=== PATIENT | male | born 1980 | race Caucasian/White ===

== ENCOUNTER 2018-12-08 06:29 | Day surgery (SDC) | payer OTHER ==
[~2018-12-08] VITALS: Ht 185.4 cm; Wt 102.3 kg
[~2018-12-08 06:29] MED LIST: ASPIRIN 32325 MG/TAB PO; FIBERCON PO; MULTI VITAMINS1 TAB PO
[2018-12-08 07:32] VITALS: BP 174/103; PULSE 78; TEMP 98.1
--- NOTE | 2018-12-08 07:56 | NUR ---
Blood pressure on recheck is 147/98. Patient states that his pressures are always when is nervous.
[2018-12-08 10:31] VITALS: TEMP 97.5
[2018-12-08 11:10] VITALS: BP 136/84; PULSE 90
--- NOTE | 2018-12-08 11:10 | NUR ---
Patient returns to room 8 per cart from PACU and is alert and oriented x3. Room air sats 95% and incisions x3 across mid abdomen intact and covered with sandoval set dressing. IV fluids infusing. Spouse and son in room. Siderails up x2 and call light in reach. Denies nausea and taking water. Rates pain at 1/10.
[2018-12-08 11:25] VITALS: BP 125/72; PULSE 93
--- NOTE | 2018-12-08 11:25 | NUR ---
Room air sats 96%. States pain is now up 3/10. Continues to deny nausea.
--- NOTE | 2018-12-08 11:30 | NUR ---
[place] 5mg one tab given for pain at 310. Eating toast and drinking juice.
[2018-12-08 11:40] VITALS: BP 140/76; PULSE 99
--- NOTE | 2018-12-08 11:40 | NUR ---
Room air sats 95%. Abdomen soft and rounded. No bleeding or drainage from the incisions.
[2018-12-08] MEDS ORDERED: NORCO 325 MG-51 TAB PO (11:46)
[2018-12-08] MEDS ORDERED: MOTRIN 600600 MG/TAB PO (11:47)
[2018-12-08 11:55] VITALS: BP 132/72; PULSE 94
--- NOTE | 2018-12-08 11:55 | NUR ---
Reports pain is 2/10. Denies nausea. Assisted up to the bathroom and gait steady. Tolerates activity well. Returns to room and IV discontinued.
--- NOTE | 2018-12-08 12:14 | NUR ---
Given dismissal instructions and voices understanding of these. Provided script for [place] and instructed that he may take Motrin 600mg every 6hrs as needed for pain. Instructed to take Motrin with food or milk and instructed to take laxative if needed. Patient dresses self.
--- NOTE | 2018-12-08 12:20 | NUR ---
Patient dismissed to home per private vehicle driven by spouse with instructions in hand and taken to car per wheelchair and assisted into vehicle. [place] script in hand.
== END 2018-12-08 12:20 | disposition home or self-care (01) ==
LOC: SDCO 06:29
DX: K40.90 Unilateral inguinal hernia, without obstruction or gangrene, not specified as recurrent (principal); D17.6 Benign lipomatous neoplasm of spermatic cord; Z79.82 Long term (current) use of aspirin; F17.210 Nicotine dependence, cigarettes, uncomplicated
CPT/HCPCS: C1781; J0360; J0690; J1100; J1885; J2405; J2704; J3010; J7120